=== PATIENT | female | born 1940 | race Caucasian/White ===

== ENCOUNTER 2017-03-04 10:01 | Emergency (ER) | payer MEDICARE, OTHER ==
--- NOTE | 2017-03-04 11:18 | Emergency Department Record ---
History of Present Illness - General Chief Complaint: Laceration(s) Stated Complaint: SKIN TEAR Time Seen by Provider: 03/04/17 11:06 Source: Patient Mode of Arrival: Ambulatory Limitations: No limitations - History of Present Illness Initial Commments: 76 yo female presents with an injury to her right arm yesterday. She rubbed up against the steering wheel of her mower and has skin tears. She presents today for an evaluation. No pus. No redness. She has cleaned the area and applied non stick dressings. Unknown last tetanus. PCP Samia. Onset/Timin -: Days(s) Location: Other Extremity Location: Right: Forearm Place: Home, School Context: Accidental Associated Symptoms: None Treatments Prior to Arrival: Bandage, Other - [place] Coma Scale Eye Response: (4) Open spontaneously Motor Response: (6) Obeys commands Verbal Response: (5) Oriented Roc Total: 15 - Related Data Hx Tetanus Toxoid Vaccination: Yes Home Medications Medication Instructions Recorded Confirmed Last Taken Aspirin [Aspir-Low] 81 mg PO DAILY 03/04/17 03/04/17 Unknown Calcium Carbonate/Vitamin D3 1 each PO DAILY 03/04/17 03/04/17 Unknown [Calcium 600 + Vit D Tablet] Cetirizine HCl/Pseudoephedrine 1 each PO DAILY 03/04/17 03/04/17 Unknown [Allergy D-12 Tablet] Citalopram Hydrobromide [Celexa] 10 mg PO DAILY 03/04/17 03/04/17 Unknown Diclofenac Sodium [Voltaren-Xr] 100 mg PO Q6H 03/04/17 03/04/17 Unknown Dicyclomine HCl [Bentyl] 10 mg PO Q12H 03/04/17 03/04/17 Unknown Furosemide [Lasix] 40 mg PO BID 03/04/17 03/04/17 Unknown Glucosa Krause 2Kcl/Chondroitin Krause 1 each PO DAILY 03/04/17 03/04/17 Unknown [Glucosamine-Chondroitin Cap] Lactobacillus Acidophilus 1 each PO DAILY 03/04/17 03/04/17 Unknown [Acidophilus] Nifedipine [Nifedipine ER] 60 mg PO DAILY 03/04/17 03/04/17 Unknown Omeprazole [Prilosec] 20 mg PO DAILY 03/04/17 03/04/17 Unknown Polyethylene Glycol 3350 [Miralax] 17 gm PO DAILY 03/04/17 03/04/17 Unknown Potassium Chloride [Klor-Con] 20 meq PO DAILY 03/04/17 03/04/17 Unknown Pyridoxine HCl (Vitamin B6) 100 mg PO DAILY 03/04/17 03/04/17 Unknown [Vitamin B-6] Simvastatin [Zocor] 20 mg PO QHS 03/04/17 03/04/17 Unknown Spironolactone [Aldactone] 25 mg PO BID 03/04/17 03/04/17 Unknown Tramadol HCl [Ultram] 50 mg PO Q4H 03/04/17 03/04/17 Unknown Allergies Allergy/AdvReac Type Severity Reaction Status Date / Time No Known Drug Allergies Allergy Verified 03/04/17 11:05 Travel Screening - Travel/Exposure Within Last 30 Days Have you traveled within the last 30 days?: No Review of Systems Constitutional: Denies: Chills, Fever, Malaise, Weakness Eyes: Denies: Eye discharge ENT: Denies: Congestion, Throat pain Respiratory: Denies: Cough Cardiovascular: Denies: Chest pain, Palpitations, Syncope Endocrine: Denies: Fatigue Gastrointestinal: Denies: Abdominal pain, Diarrhea, Nausea, Vomiting Genitourinary: Denies: Dysuria, Urgency Musculoskeletal: Denies: Arthralgia, Back pain, Joint swelling, Myalgia Skin: Reports: As per HPI, Bruising, Change in color, Other Neurological: Denies: Headache Psychiatric: Denies: Anxiety Hematological/Lymphatic: Denies: Blood Clots, Easy bleeding, Easy bruising, Swollen glands Past Medical History - SOCIAL HISTORY Smoking Status: Never smoker Alcohol Use: None Drug Use: None - RESPIRATORY Hx Respiratory Disorders: No - CARDIOVASCULAR Hx Cardio Disorders: Yes Hx Hypertension: Yes - NEURO Hx Neuro Disorders: No - GI Hx GI Disorders: Yes Hx Reflux: Yes - Hx Genitourinary Disorders: Yes Hx Bladder Problem: Yes (stress inc.) - ENDOCRINE Hx Endocrine Disorders: Yes Hx Diabetes: Yes (DIET Controlled; no meds) - MUSCULOSKELETAL Hx Musculoskeletal Disorders: Yes Hx Arthritis: Yes (everywhere) - PSYCH Hx Psych Problems: No - HEMATOLOGY/ONCOLOGY Hx Hematology/Oncology Disorders: No Family Medical History Any Significant Family History?: No Physical Exam - General General Appearance: Alert, Oriented x3, Cooperative, No acute distress Limitations: No limitations - Head Head exam: Atraumatic, Normal inspection - Eye Eye exam: Normal appearance - ENT ENT exam: Normal exam Ear exam: Normal external inspection Nasal Exam: Normal inspection - Neck Neck exam: Normal inspection, Full ROM. negative: Tenderness - Cardiovascular Cardiovascular Exam: Regular rate, Normal rhythm, Normal heart sounds Peripheral Pulses: 2+: Radial (R) - Rectal Rectal exam: Deferred - exam: Deferred - Extremities Extremities exam: Full ROM, Normal capillary refill. negative: Normal inspection, Joint swelling, Tenderness Image of Full Body: 1 - skin tears to the right forearm, clean, no draiange. No bleeding. Small area of dried nearly completely avulsed skin. 80% coverage estimate. - Back Back exam: Reports: Full ROM - Neurological Neurological exam: Alert, Normal gait, Oriented X3, Reflexes normal - Psychiatric Psychiatric exam: Normal affect, Normal mood - Skin Skin exam: Other (skin tears) Course Vital Signs 03/04/17 11:02 Temperature 98.7 F Pulse Rate 59 L Respiratory 16 Rate Blood Pressure 143/60 Pulse Ox 96 - Reevaluation(s) Reevaluation #1: The skin tears were cleaned Areas of mobility were steri stripped to approximate Remaining areas will heal by secondary intention (small area) We discussed home care and close follow up with PCP to ensure healing I explained it will take 2-3 weeks. IF not healing may need wound clinic referral Tetanus updated. 03/04/17 11:21 Disposition Disposition: Discharge Clinical Impression: Skin tear Disposition: Home, Self-Care Condition: (1) Good Instructions: Skin Tear (ED) Additional Instructions: Clean daily Apply the non stick dressing Call your doctor for a recheck this week If you are not healing you may need a referral to a wound clinic Forms: Patient Portal Access Time of Disposition: 11:24 Quality - Quality Measures Quality Measures: N/A - Blood Pressure Screening Does Patient Have Any of the Following: No Blood Pressure Classification: Hypertensive Reading Systolic Measurement: 143 Diastolic Measurement: 60 Screening for High Blood Pressure: < Pre-Hypertensive BP, F/U Documented > [ G8950] Pre-Hypertensive Follow-up Interventions: Referral to alternative/primary care provider.
[2017-03-04] MEDS: Diph,Pert(Acell),Tet Vac 0.5 ML SYR IM ONE (11:32)
== END 2017-03-04 11:40 | disposition home or self-care (01) ==
LOC: ER 10:01
DX: S51.811A Laceration without foreign body of right forearm, initial encounter (principal); W22.8XXA Striking against or struck by other objects, initial encounter; Y93.H9 Activity, other involving exterior property and land maintenance, building and construction; Y92.096 Garden or yard of other non-institutional residence as the place of occurrence of the external cause
CPT/HCPCS: 90715; 96372; 99282

== ENCOUNTER 2018-11-27 09:33 | Day surgery (SDC) | payer MEDICARE, OTHER ==
[2018-11-27] MEDS ORDERED: LIDOCAINE 2% MDV (20MG/ML) 20ML VIAL IV ONE (09:34)
[2018-11-27] MEDS ORDERED: PROPOFOL 10 MG/ML VIAL IV ONE (09:34)
--- NOTE | 2018-11-30 08:11 | Operative Note ---
SURGEON: Carmen Staton MD OPERATION: COLONOSCOPY. INDICATIONS: This is an 78-year-old female with positive Cologuard who presented for colonoscopy. POSTOPERATIVE DIAGNOSES: 1. Left-sided colonic diverticulosis. 2. Poor bowel preparation. ANESTHESIA: Sedation is per Anesthesia. Pulse oximetry was monitored throughout the procedure to maintain O2 saturation of 90% or greater. Supplemental oxygen was administered via nasal cannula. Cardiac and vital signs were monitored throughout the duration of the procedure, and they were stable. The procedure of colonoscopy and risks and alternatives of the procedure, including the risk of bleeding and perforation, among others, were explained to the patient who voiced understanding and agreed to have the procedure done. Physical examination was performed, and the patient was found stable for sedation. PROCEDURE: The patient was placed in the left lateral position. Sedation was initiated. A digital rectal exam was performed and showed some mild external hemorrhoids with no palpable rectal masses. An Olympus PCF-180AL colonoscope was then inserted into the rectum under direct visualization. It was advanced to the cecum without difficulty. The ileocecal valve and appendiceal orifice were identified and photographed. The colonic mucosa was carefully examined upon introduction of the colonoscope. There were scattered diverticula noted in the sigmoid and descending colon. There were no other lesions noted. The ileocecal valve was intubated and terminal ileal mucosa was inspected for about 10 cm and it appeared normal. The colonoscope was then withdrawn while carefully examining the colonic mucosal surfaces. No other lesions were noted. The bowel preparation was poor in the ascending, descending, and sigmoid colon. In the rectum, retroflexion was performed and grade 1 internal hemorrhoids were noted. The colonoscope was then withdrawn and the procedure was terminated. The patient tolerated the procedure well without any immediate complications. The patient remained with stable vital signs and was transferred to the recovery room. RECOMMENDATIONS: 1. The patient should be on a high-fiber diet. 2. The patient is to have a repeat colonoscopy as needed. Thank you for allowing me to participate in the care of your patient. CC: Helena PATTERSON
== END 2018-11-27 11:20 | disposition home or self-care (01) ==
LOC: HOP 09:33
PROVIDERS: ATTEND Internal Medicine Gastroenterology
DX: R19.5 Other fecal abnormalities (principal); K57.30 Diverticulosis of large intestine without perforation or abscess without bleeding; I10 Essential (primary) hypertension; E78.00 Pure hypercholesterolemia, unspecified; R60.9 Edema, unspecified; M19.90 Unspecified osteoarthritis, unspecified site

== ENCOUNTER 2018-12-11 09:25 | Emergency (ER) | payer OTHER ==
[2018-12-11 10:45] LABS: ABSOLUTE NEUTROPHIL COUNT 5.23; HEMATOCRIT 49.2 % (35.0-47.0); HEMOGLOBIN 15.7 gm/dl (11.6-16.0); MEAN CELL VOLUME 82.8 fl (81-97); MEAN CORPUSCULAR HEMOGLOBIN 26.4 pg (27-33); MEAN CORPUSCULAR HGB CONC 31.9 g/dl (32-36); MEAN PLATELET VOLUME 11.2 fl (7.4-10.4); PLATELET COUNT 197 K/uL (130-400); RED BLOOD COUNT 5.94 M/uL (3.80-5.40); RED CELL DISTRIBUTION WIDTH 14.9 % (11.5-14.5); WHITE BLOOD COUNT W/O DIFF 6.3 K/uL (4.2-12.2)
[2018-12-11] MEDS ORDERED: 0.9 % SODIUM CHLORIDE 1,000 ML BAG IV ONE (11:06)
[2018-12-11 11:31] LABS: ERYTHROCYTE SEDIMENTATION RATE 5 mm/hr (0-30)
--- NOTE | 2018-12-11 11:31 | Emergency Department Record ---
History of Present Illness - General Chief complaint: Pain Stated complaint: R HIP PAIN Time Seen by Provider: 12/11/18 09:42 Source: Patient Mode of Arrival: Ambulatory Limitations: No limitations - History of Present Illness Initial comments: pt has been having r hip pain that is worse w weight bearing. she denies injury. sometimes the pain shoots down her leg. no changes in bowel or bladder MD Complaint: Extremity pain, Joint pain Onset/Timin -: Days(s) Location: Right, Other History of Same: No Radiation: Distal Severity scale (1-10): 2 Quality: Aching Consistency: Constant Improves with: Immobilization Worsens with: Walking, Weight bearing Associated Symptoms: Denies other symptoms - Related Data Allergies Allergy/AdvReac Type Severity Reaction Status Date / Time No Known Drug Allergies Allergy Verified 03/04/17 11:05 Travel Screening - Travel/Exposure Within Last 30 Days Have you traveled within the last 30 days?: No Review of Systems Reviewed: No additional complaints except as noted below Constitutional: Reports: As per HPI. Denies: Chills, Fever, Malaise, Night sweats, Weakness, Weight change Eyes: Reports: As per HPI. Denies: Eye discharge, Eye pain, Photophobia, Vision change ENT: Reports: As per HPI. Denies: Congestion, Dental pain, Ear pain, Epistaxis, Hearing loss, Throat pain Respiratory: Reports: As per HPI. Denies: Cough, Dyspnea, Hemoptysis, Stridor, Wheezes Cardiovascular: Reports: As per HPI. Denies: Arrhythmia, Chest pain, Dyspnea on exertion, Edema, Murmurs, Orthopnea, Palpitations, Paroxysmal nocturnal dyspnea, Rheumatic Fever, Syncope Endocrine: Reports: As per HPI. Denies: Fatigue, Heat or cold intolerance, Polydipsia, Polyuria Gastrointestinal: Reports: As per HPI. Denies: Abdominal pain, Constipation, Diarrhea, Hematemesis, Hematochezia, Melena, Nausea, Vomiting Genitourinary: Reports: As per HPI. Denies: Abnormal menses, Discharge, Dyspareunia, Dysuria, Frequency, Hematuria, Incontinence, Retention, Urgency Musculoskeletal: Reports: As per HPI. Denies: Arthralgia, Back pain, Gout, Joint swelling, Myalgia, Neck pain Skin: Reports: As per HPI. Denies: Bruising, Change in color, Change in hair/nails, Lesions, Pruritus, Rash Neurological: Reports: As per HPI. Denies: Abnormal gait, Confusion, Headache, Numbness, Paresthesias, Seizure, Tingling, Tremors, Vertigo, Weakness Psychiatric: Reports: As per HPI. Denies: Anxiety, Auditory hallucinations, Depression, Homicidal thoughts, Suicidal thoughts, Visual hallucinations Hematological/Lymphatic: Reports: As per HPI. Denies: Anemia, Blood Clots, Easy bleeding, Easy bruising, Swollen glands Past Medical History - SOCIAL HISTORY Smoking Status: Never smoker - RESPIRATORY Hx Respiratory Disorders: No - CARDIOVASCULAR Hx Cardio Disorders: Yes Hx Edema: Yes Hx Hypertension: Yes Hx Irregular Heartbeat: Yes (few years ago) Comment:: high cholesterol - NEURO Hx Neuro Disorders: No - GI Hx GI Disorders: Yes Hx Reflux: Yes - Hx Genitourinary Disorders: Yes Hx Bladder Problem: Yes (stress inc.) - ENDOCRINE Hx Endocrine Disorders: Yes Hx Diabetes: Yes (DIET Controlled; no meds) - MUSCULOSKELETAL Hx Musculoskeletal Disorders: Yes Hx Arthritis: Yes (everywhere) - PSYCH Hx Psych Problems: Yes Hx Anxiety: Yes Hx Depression: Yes - HEMATOLOGY/ONCOLOGY Hx Hematology/Oncology Disorders: No Family Medical History Any Significant Family History?: No Physical Exam - General General Appearance: Alert, Oriented x3, Cooperative, No acute distress - Head Head exam: Normal inspection - Eye Eye exam: Normal appearance, PERRL, EOMI Pupils: Normal accommodation - ENT ENT exam: Normal exam, Mucous membranes moist, Normal external ear exam, Normal orophraynx Ear exam: Normal external inspection. negative: External canal tenderness Nasal Exam: Normal inspection. negative: Discharge, Sinus tenderness Mouth exam: Normal external inspection, Tongue normal Teeth exam: Normal inspection. negative: Dental caries Throat exam: Normal inspection. negative: Tonsillar erythema, Tonsillar exudate - Neck Neck exam: Normal inspection, Full ROM. negative: Tenderness - Respiratory Respiratory exam: Normal lung sounds bilaterally. negative: Respiratory distress - Cardiovascular Cardiovascular Exam: Regular rate, Normal rhythm, Normal heart sounds - GI/Abdominal GI/Abdominal exam: Soft, Normal bowel sounds. negative: Tenderness - Rectal Rectal exam: Deferred - exam: Deferred - Extremities Extremities exam: Normal inspection, Full ROM, Normal capillary refill, Tenderness (r hip and lumbar area) - Back Back exam: Reports: Normal inspection, Full ROM. Denies: Muscle spasm, Rash noted, Tenderness - Neurological Neurological exam: Alert, CN II-XII intact, Normal gait, Oriented X3 - Psychiatric Psychiatric exam: Normal affect, Normal mood - Skin Skin exam: Dry, Intact, Normal color, Warm Course Vital Signs 12/11/18 09:38 Temperature 98.6 F Pulse Rate [ 73 Pulse Ox Probe] Respiratory 18 Rate Blood Pressure 153/78 [Left Arm] Pulse Ox 98 - Reevaluation(s) Reevaluation #1: 12/11/18 11:26 pt feels better Medical Decision Making - Lab Data Result diagrams: 12/11/18 10:35 12/11/18 10:35 Lab Results 12/11/18 12/11/18 Range/Units 10:35 10:35 WBC 6.3 (4.2-12.2) K/uL RBC 5.94 H (3.80-5.40) M/uL Hgb 15.7 (11.6-16.0) gm/dl Hct 49.2 H (35.0-47.0) % MCV 82.8 (81-97) fl MCH 26.4 L (27-33) pg MCHC 31.9 L (32-36) g/dl RDW 14.9 H (11.5-14.5) % Plt Count 197 (130-400) K/uL MPV 11.2 H (7.4-10.4) fl Neutrophils % 87.0 H (47-80) % Band Neutrophils % 1.0 (0-5) % Eosinophils % Not Reportable Basophils % Not Reportable Absolute Neutrophils 5.23 Lymphocytes 9.0 L (16-45) % Monocytes 2.0 (0-9) % Eosinophil Count 1.0 (0-6) % Sodium 139 (136-145) mmol/L Potassium 4.2 (3.4-4.5) mmol/L Chloride 98 (98-107) mmol/L Carbon Dioxide 27.0 (22-29) mmol/L Anion Gap 14.0 (7-16) BUN 29 H (8-23) mg/dL Creatinine 1.0 H (0.5-0.9) mg/dL Estimated GFR 57 mL/min Random Glucose 188 H (74-109) mg/dL Calcium 9.6 (8.8-10.2) mg/dL Disposition Disposition: Discharge Clinical Impression: Hip pain Qualifiers: Laterality: right Qualified Code(s): M25.551 - Pain in right hip Disposition: Home, Self-Care Condition: (1) Good Instructions: Pain Management in the Elderly (ED), Hip Pain (ED), Arthralgia (ED) Additional Instructions: follow up with dr sow. return sooner if worse Referrals: MIKE SOW [DOCTOR OF OSTEOPATH] - [facility] [Provider Group] Quality - Quality Measures Quality Measures: N/A - Blood Pressure Screening Does Patient Have Any of the Following: Active Dx of HTN Blood Pressure Classification: Hypertensive Reading Systolic Measurement: 153 Diastolic Measurement: 78 Screening for High Blood Pressure: Patient Exclusion, Hx of HTN [G9744]
--- NOTE | 2018-12-15 05:41 | RADIOLOGY REPORT ---
EXAM: PELVIS AND RIGHT HIP HISTORY: LOWER BACK AND RIGHT HIP PAIN FOR THREE DAYS. NO KNOWN INJURY. TECHNIQUE: AP view of the pelvis and AP and lateral views of the right hip were obtained. Comparison: CT of the abdomen and pelvis 04/06/14. FINDINGS: No acute fracture is seen. No right hip joint dislocation. Minimal bilateral femoral acetabular arthrosis. Mild to moderate bilateral sacroiliac joint arthrosis. Bilateral proximal femur greater trochanteric enthesophytes, more prominent on the right. Large volume of stool throughout the visualized colon and rectum. Vascular calcifications are noted. IMPRESSION: 1. NO ACUTE OSSEOUS FINDINGS. 2. CHRONIC AND DEGENERATIVE CHANGES OF THE PELVIS AND HIPS , ABOVE. 3. LARGE COLONIC STOOL BURDEN. JOB NUMBER: [id number] MTDD
--- NOTE | 2018-12-15 05:45 | RADIOLOGY REPORT ---
EXAM: LUMBAR SPINE HISTORY: LOWER BACK AND RIGHT HIP PAIN FOR THREE DAYS. TECHNIQUE: Three views of the lumbar spine were obtained. Comparison: CT of the abdomen and pelvis 04/06/14. FINDINGS: Likely five non-rib bearing lumbar type vertebral bodies are identified. No significant vertebral body height loss. Marked disk space height loss at L5-S1 with end plate sclerosis. End plate osteophytes at multiple levels, most pronounced at L1-L2. There are still bridging osteophytes seen in the lower thoracic spine. Diffuse facet joint arthrosis, greatest at the lower lumbar levels. There is a large volume of stool in the visualized colon. Abdominal aortic calcification noted. IMPRESSION: 1. MULTILEVEL LUMBAR SPINE DEGENERATIVE FINDINGS WITH EVIDENCE OF DISK DEGENERATION. 2. LARGE COLONIC STOOL BURDEN. JOB NUMBER: [id number] [facility]
== END 2018-12-11 11:38 | disposition home or self-care (01) ==
LOC: ER 09:25
DX: M25.551 Pain in right hip (principal); M54.5 Low back pain; I10 Essential (primary) hypertension
CPT/HCPCS: 72100; 80048; 85027; 85651; 99284

== ENCOUNTER 2019-03-28 08:26 | Emergency (ER) | payer MEDICARE ==
--- NOTE | 2019-03-28 08:45 | Emergency Department Record ---
History of Present Illness - General Chief Complaint: Fall Injury Stated Complaint: FALL/ARMS BLEEDING Time Seen by Provider: 03/28/19 08:28 Source: Patient Mode of Arrival: Ambulatory Limitations: No limitations - History of Present Illness Initial Comments: The patient is here due to tripping and falling last evening at home and suffering skin tears to the R and L arms. She has a hx of the same in the past. The patient denies any head injury, LOC, or neck pain. She also denies any arm or shoulder pain and states the skin tears are only mildly painful. She did drive herself here to the ER without difficulty and is ambulating normally. She also is not on any blood thinners. Her Td is UTD. MD Complaint: Fall Onset/Timin -: Days(s) - Related Data Allergies Allergy/AdvReac Type Severity Reaction Status Date / Time No Known Drug Allergies Allergy Verified 03/04/17 11:05 Review of Systems Constitutional: Denies: Chills, Fever Past Medical History - SOCIAL HISTORY Smoking Status: Never smoker - RESPIRATORY Hx Respiratory Disorders: No - CARDIOVASCULAR Hx Cardio Disorders: Yes Hx Edema: Yes Hx Hypertension: Yes Hx Irregular Heartbeat: Yes (few years ago) Comment:: high cholesterol - NEURO Hx Neuro Disorders: No - GI Hx GI Disorders: Yes Hx Reflux: Yes - Hx Genitourinary Disorders: Yes Hx Bladder Problem: Yes (stress inc.) - ENDOCRINE Hx Endocrine Disorders: Yes Hx Diabetes: Yes (DIET Controlled; no meds) - MUSCULOSKELETAL Hx Musculoskeletal Disorders: Yes Hx Arthritis: Yes (everywhere) - PSYCH Hx Psych Problems: Yes Hx Anxiety: Yes Hx Depression: Yes - HEMATOLOGY/ONCOLOGY Hx Hematology/Oncology Disorders: No Physical Exam - General General Appearance: Alert, Oriented x3, Cooperative, No acute distress - Head Head exam: Atraumatic, Normocephalic, Normal inspection - Eye Eye exam: Normal appearance, PERRL - Neck Neck exam: Normal inspection, Full ROM. negative: Lymphadenopathy, Tenderness (There is no Cspine tenderness.) - Respiratory Respiratory exam: Normal lung sounds bilaterally. negative: Respiratory distress - Cardiovascular Cardiovascular Exam: Regular rate, Normal rhythm, Normal heart sounds - GI/Abdominal GI/Abdominal exam: Soft, Normal bowel sounds. negative: Tenderness - Extremities Extremities exam: Full ROM, Other (The arms are NVI distally with normal sensation and pulses.). negative: Normal inspection (There are multiple skin tears to the R>L arms mainly around the elbow. There are no areas that are suturable. ), Tenderness (There is no elbow, shoulder or forearm tenderness.) Image of Full Body: 1 - large skin tears. 2 - Smaller skin tear. - Neurological Neurological exam: Alert, Normal gait, Oriented X3. negative: Abnormal gait, Altered, Motor sensory deficit Course - Reevaluation(s) Reevaluation #1: We did minimally debride the skin edges with sterile scissors and clean and dress the wounds with Abx ointment and adaptic. She is to keep the wounds dry and return to the ER in 2 days for a wound recheck. 03/28/19 08:46 Disposition Disposition: Discharge Clinical Impression: Skin tear Disposition: Home, Self-Care Condition: (2) Stable Instructions: Fall Prevention for Older Adults (ED), Skin Tear (ED) Additional Instructions: Please keep the arms clean and dry and use Tylenol for pain. Please see your doctor on Friday for a wound recheck. If unable to see your family doctor return to the ER for the wound recheck. Forms: Patient Portal Access Time of Disposition: 08:48 Quality - Quality Measures Quality Measures: N/A - Blood Pressure Screening View Details: Yes Does Patient Have Any of the Following: No Blood Pressure Classification: Pre-Hypertensive BP Reading Systolic Measurement: 161 Diastolic Measurement: 88 Screening for High Blood Pressure: < Pre-Hypertensive BP, F/U Documented > [G8950] Pre-Hypertensive Follow-up Interventions: Referral to alternative/primary care provider.
== END 2019-03-28 09:05 | disposition home or self-care (01) ==
LOC: ER 08:26
DX: S51.012A Laceration without foreign body of left elbow, initial encounter (principal); S51.011A Laceration without foreign body of right elbow, initial encounter; W01.10XA Fall on same level from slipping, tripping and stumbling with subsequent striking against unspecified object, initial encounter; Y92.009 Unspecified place in unspecified non-institutional (private) residence as the place of occurrence of the external cause; I10 Essential (primary) hypertension
CPT/HCPCS: 99283

== ENCOUNTER 2019-03-30 09:27 | Emergency (ER) | payer MEDICARE ==
--- NOTE | 2019-03-30 09:40 | Emergency Department Record ---
History of Present Illness - General Chief Complaint: Wound, check Stated Complaint: RECHECK/DRESSING CHANGE Time Seen by Provider: 03/30/19 09:30 Source: Patient Mode of arrival: Ambulatory Limitations: No limitations - History of Present Illness Initial Comments: The patient is here for a wound recheck. She tripped and fell 2 days ago suffering skin tears to both arms R>L. She was seen here in the ER and had dressing placed. Since she has been doing very well and is here for a wound recheck. The patient states the wounds are not painful and she feels they are improving. Complaint: Wound re-check - Related Data Allergies Allergy/AdvReac Type Severity Reaction Status Date / Time No Known Drug Allergies Allergy Verified 03/04/17 11:05 Review of Systems Constitutional: Denies: Chills, Fever Past Medical History - SOCIAL HISTORY Smoking Status: Never smoker - RESPIRATORY Hx Respiratory Disorders: No - CARDIOVASCULAR Hx Cardio Disorders: Yes Hx Edema: Yes Hx Hypertension: Yes Hx Irregular Heartbeat: Yes (few years ago) Comment:: high cholesterol - NEURO Hx Neuro Disorders: No - GI Hx GI Disorders: Yes Hx Reflux: Yes - Hx Genitourinary Disorders: Yes Hx Bladder Problem: Yes (stress inc.) - ENDOCRINE Hx Endocrine Disorders: Yes Hx Diabetes: Yes (DIET Controlled; no meds) - MUSCULOSKELETAL Hx Musculoskeletal Disorders: Yes Hx Arthritis: Yes (everywhere) - PSYCH Hx Psych Problems: Yes Hx Anxiety: Yes Hx Depression: Yes - HEMATOLOGY/ONCOLOGY Hx Hematology/Oncology Disorders: No Physical Exam - General General Appearance: Alert, Cooperative, No acute distress - Head Head exam: Atraumatic - Eye Eye exam: Normal appearance - Neck Neck exam: Normal inspection - Respiratory Respiratory exam: Normal lung sounds bilaterally. negative: Respiratory distress - Cardiovascular Cardiovascular Exam: Regular rate, Normal rhythm, Normal heart sounds. negative: Diastolic murmur - Extremities Extremities exam: negative: Normal inspection (There are large skin tears that appear like abrasions to the R > L arms. They appear to be healing well with no signs of infection. There is no bony tenderness.) Course - Reevaluation(s) Reevaluation #1: I did discuss the need to continue local wound care to both arm skin tear areas. She understands and will comply. 03/30/19 09:49 Disposition Disposition: Discharge Clinical Impression: Skin tear Disposition: Home, Self-Care Condition: (2) Stable Instructions: Skin Tear (ED) Additional Instructions: Please leave the bandages on for 2 days then change daily. Please see your doctor next week for recheck and return to the ER for any signs of infection. Forms: Patient Portal Access Time of Disposition: 09:39 Quality - Quality Measures Quality Measures: N/A - Blood Pressure Screening View Details: Yes Does Patient Have Any of the Following: No Blood Pressure Classification: Pre-Hypertensive BP Reading Systolic Measurement: 128 Diastolic Measurement: 61 Screening for High Blood Pressure: < Pre-Hypertensive BP, F/U Documented > [[id number]] Pre-Hypertensive Follow-up Interventions: Referral to alternative/primary care provider.
== END 2019-03-30 10:07 | disposition home or self-care (01) ==
LOC: ER 09:27
DX: S40.812A Abrasion of left upper arm, initial encounter (principal); S40.811A Abrasion of right upper arm, initial encounter; W01.10XA Fall on same level from slipping, tripping and stumbling with subsequent striking against unspecified object, initial encounter; E11.9 Type 2 diabetes mellitus without complications; I10 Essential (primary) hypertension
CPT/HCPCS: 99281